=== PATIENT | female | born 1980 | race African-American/Black ===

== ENCOUNTER → 2020-09-19 | Outpatient (CLI) | payer BC ==
[2014-03-13 13:11] VITALS: BP 118/75
--- NOTE | 2020-09-19 17:29 | CARD ---
MR#: [id number] Date of Study: 09/19/2020 Ordering Physician: IRIS MADRID, Referring Physician: IRIS MADRID, Tech: Radha Spann CS APPROVED REPORT INDICATION Chest Pain Reason : Patient complained of pain PROCEDURE The patient underwent an Exercise Stress Test using the Ankit Protocol. Blood pressure, heart rate, a nd EKG were monitored. An Echocardiogram was performed by tube test technician in four stages in quad fashion. At peak stress four se lected images were obtained and placed side by side with resting images for comparison. STRESS ECHO FINDINGS The resting Echocardiogram showed normal left ventricular systolic contractility with an estimated Ej ection Fraction of about 60 %. The Stress Echocardiogram showed normal augmentation of myocardial wall segments using a 16 segment m adeola. The Stress Echocardiogram left ventricular systolic contractility has an estimated Ejection Fraction of about 70%. Test Type: Exercise Stress Nurse/Tech: Dorie Flowers R.N. Test Indications: chest pain Cardiac History and Allergies: none Medications: none Medical History: none Resting ECG: sr Resting Heart Rate: 72 bpm Resting Blood Pressure: 101/73mmHg Pretest Chest Pain: No chest pain Nurse/Tech Notes lungs cta, heart tones regular Stress Symptoms No chest pain or symptoms. POST EXERCISE Reason for Termination: Reached target heart rate Target HR: Yes Max HR: 179 bpm 100% of Maximum Predicted HR: 179 bpm Exercise duration: 9:41 min:sec, Stage Exercise capacity: 10.1METs Max Blood Pressure: 132/68mmHg Blood Pressure response to exercise: Normal blood pressure response during stress. Heart Rate response to exercise: normal Chest Pain: No. Arrhythmia: No. INTERPRETATION Stress EKG Conclusion: The resting EKG was normal sinus rhythm with slight nonspecific ST-T wave frank ges. The stress EKG had no significant changes from baseline. No EKG evidence of stress-induced ischemia. <Conclusion> Good exercise tolerance with the patient walking for 9 minutes and 41 seconds on a Ankit protocol. No reported chest pain with exertion. No EKG evidence of stress-induced ischemia. Normal left ventricular systolic function at rest. Normal left ventricular response to exertion with no regional wall motion abnormalities. Low risk treadmill stress echo. Signed by : Noah Mederos MD Electronically Approved : 09/19/2020 17:28:52
== END ==
LOC: ECHO 12:54
PROVIDERS: ATTEND Internal Medicine Cardiovascular Disease
DX: R07.89 Other chest pain (principal)
CPT/HCPCS: 93017; 93350